=== PATIENT | male | born 1970 | race Caucasian/White ===

== ENCOUNTER 2017-05-20 08:40 | Emergency (ER) | payer OTHER ==
[2017-05-20 09:37] LABS: APPEARANCE HAZY (CLEAR); COLOR DK YELLOW (YELLOW); KETONE NEGATIVE (NEGATIVE); NITRITE NEGATIVE (NEGATIVE); PROTEIN 1+ mg/dL (NEGATIVE)
[2017-05-20 09:38] LABS: BACTERIA FEW /hpf (NONE SEEN); BILIRUBIN NEGATIVE (NEGATIVE); EPITHELIAL CELLS 0-5 /hpf (0-5); GLUCOSE NEGATIVE (NEGATIVE); MUCUS >1+ /lpf (NONE SEEN); RED CELLS - URINE 25-50 /hpf (0-5); UROBILINOGEN NORMAL (NORMAL); WHITE CELLS - URINE RARE /hpf (0-5)
[2017-05-20 09:50] LABS: BASOPHILS 0.3 % (0-2); EOSINOPHILS 0.1 % (0-7); HEMATOCRIT 45.4 % (42.0-54.0); HEMOGLOBIN 15.7 g/dL (13.5-17.5); IMMATURE GRANULOCYTES 0.3 % (0-5); MCH 29.6 pg (26.0-34.0); MCHC 34.6 g/dL (31.0-37.0); MCV 85.5 fL (80.0-100.0); MEAN PLATELET VOLUME 9.8 fL (7.4-10.4); MONOCYTES 4.9 % (2-11); NEUTROPHILS 87.4 % (40-80); PLATELET COUNT 287 10x3/uL (130-400); RBC 5.31 10x6/uL (4.20-6.10); RDW 12.9 % (11.5-14.5); WBC 14.6 10x3/uL (4.8-10.8)
[2017-05-20 10:10] LABS: ALBUMIN 4.3 g/dL (3.4-5.0); ANION GAP 15.4 mmol/L (8-16); BILIRUBIN - TOTAL 0.41 mg/dL (0.2-1.3); CALCIUM 9.1 mg/dL (8.5-10.1); CARBON DIOXIDE 23.7 mmol/L (21.0-32.0); CREATININE - SERUM 1.3 mg/dL (0.6-1.3); POTASSIUM - SERUM 4.1 mmol/L (3.5-5.1); PROTEIN - SERUM 7.7 g/dL (6.4-8.2)
== END 2017-05-20 13:33 | disposition home or self-care (01) ==
LOC: D.ER 08:40
PROVIDERS: Family Medicine
DX: N20.1 Calculus of ureter (principal)

== ENCOUNTER → 2017-06-04 17:57 | Outpatient (CLI) | payer OTHER ==
[2017-06-17 18:09] LABS: CALCULI - CA OXALATE MONOHYDR 97 % (()); CALCULI - COLOR Brown (()); CALCULI - SIZE 3x3x3 mm (()); CALCULI - WEIGHT 24.6 mg (())
== END | disposition home or self-care (01) ==
LOC: D.LABREF 17:57
PROVIDERS: Urology
DX: N20.0 Calculus of kidney (principal)